=== PATIENT | female | born 1935 | race Caucasian/White ===

== ENCOUNTER 2022-04-02 08:00 | Outpatient (CLI) | payer MEDICARE, OTHER ==
--- NOTE | 2022-04-03 08:42 | XRAY Report ---
PROCEDURE: Chest 2 View X-Ray INDICATIONS: HEMOPTYSIS TECHNIQUE: 2 view(s) of the chest. COMPARISON: None. FINDINGS: SUPPORT DEVICES: None. LUNGS/PLEURA: Coarsened interstitial markings. Density in the left lower lung zone, concerning for pn eumonic infiltrate or atelectasis. MEDIASTINUM: Mild enlargement of cardiac silhouette. Calcified atheromatous changes of the aorta. BONES/SOFT TISSUES: No acute abnormality. Bilateral shoulder arthroplasties. IMPRESSION: 1.Density in the left lower lung zone, concerning for pneumonic infiltrate or atelectasis. Reviewed by: Syed West MD on 04/03/2022 8:41 AM PDT Approved by: Syed West MD on 04/03/2022 8:41 AM PDT Station ID: [id number]
== END 2022-04-02 23:59 | disposition home or self-care (01) ==
LOC: DI.N 08:00
PROVIDERS: ATTEND Physician Assistant
DX: R04.2 Hemoptysis (principal); R91.8 Other nonspecific abnormal finding of lung field

== ENCOUNTER 2022-05-11 16:52 | Outpatient (CLI) | payer MEDICARE, OTHER | END 2022-05-11 16:53 | disposition left against medical advice (07) | LOC: EMS 16:52 | DX: R52 Pain, unspecified (principal) ==

== ENCOUNTER 2022-08-02 15:58 | Emergency (ER) | payer MEDICARE, OTHER ==
[2022-08-02 16:13] VITALS: BP 185/53
--- NOTE | 2022-08-02 17:54 | CT Report ---
PROCEDURE: CERVICAL SPINE WO INDICATIONS: fall, head/neck pain x 5 days TECHNIQUE: Noncontrast 3 mm thick sections acquired from the skull base to the T4 level. Sagittal and coronal r eformats were then constructed. For radiation dose reduction, the following was used: automated exp osure control, adjustment of mA and/or kV according to patient size. COMPARISON: None. FINDINGS: Image quality: Excellent. Bones: No fractures or dislocations. Visualized superior ribs are intact. The cervical spine has m ultilevel degenerative changes. There is disc disease at C5-6, C6-7 and C7-T1 Soft tissues: Prevertebral soft tissues are normal in thickness. No paravertebral hematomas. No ap ical pneumothoraces. Right carotid artery stent and left carotid bulb calcifications. IMPRESSION: 1. No acute traumatic abnormality of the cervical spine. 2. 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 Reviewed by: Jamie Gallardo on 08/02/2022 5:53 PM PDT Approved by: Jamie Gallardo on 08/02/2022 5:53 PM PDT Station ID: [id number]
--- NOTE | 2022-08-02 17:56 | CT Report ---
PROCEDURE: HEAD WO INDICATIONS: fall, head/neck pain x 5 days, on eliquis TECHNIQUE: Noncontrast 4.5 mm thick angled axial sections acquired from the foramen magnum to the vertex. For r adiation dose reduction, the following was used: automated exposure control, adjustment of mA and/or kV according to patient size. COMPARISON: None. FINDINGS: Image quality: Significant artifact is seen by the electronic device over the left posterior scalp wh ich limits evaluation of the left hemisphere.. CSF spaces: Basal cisterns are patent. No extra-axial fluid collections. Ventricles are normal in size and shape. Brain: No midline shift. No intracranial masses or hemorrhage. Villeda-white matter interface is norm al. Skull and face: Calvarium and visualized facial bones are intact, without suspicious lesions. Elect ronic device, probably a cochlear implant is seen over the left posterior scalp. Sinuses: Visualized sinuses and mastoids are clear. IMPRESSION: No acute intracranial abnormality. Reviewed by: Jamie Gallardo on 08/02/2022 5:55 PM PDT Approved by: Jamie Gallardo on 08/02/2022 5:55 PM PDT Station ID: [id number]
--- NOTE | 2022-08-02 18:08 | ED Physician Documentation ---
History of Present Illness - Stated complaint Stated Complaint: FELL FRIDAY - Chief complaint Chief Complaint: Trauma Hd/Nk - History obtained from History obtained from: Patient, Family - History of Present Illness Timing: How many days ago (5) Pain level max: 4 Pain level now: 3 - Additonal information Additional information: Patient is an 87-year-old female, currently taking Eliquis who is brought in by family today. About 5 days ago she tripped fell landing on her left hip, left knee and striking the left side of her head. She has a mild continued headache. She has a large bruise to the left hip area and bruising to the left knee. She states she is not having any pain with walking. She walks using a walker. Worse with movement and palpation. Better with rest. No vomiting. No seizure activity. No loss of consciousness. No neck or back pain. Review of Systems Constitutional: denies: Fever, Chills Respiratory: denies: Cough GI: denies: Abdominal Pain, Vomiting, Diarrhea Skin: denies: Rash Neurologic: denies: Focal weakness, Numbness, Altered mental status PD PAST MEDICAL HISTORY - Past Medical History Past Medical History: Yes Cardiovascular: Atrial fibrillation - Allergies Allergies/Adverse Reactions: Allergies Allergy/AdvReac Type Severity Reaction Status Date / Time lisinopril Allergy Respiratory Verified 08/02/22 16:13 PD ED PE NORMAL - Vitals Vital signs reviewed: Yes - General General: Alert and oriented X 3, No acute distress - HEENT HEENT: Atraumatic, PERRL, Ears normal, Moist mucous membranes - Neck Neck: Supple, no meningeal sign - Cardiac Cardiac: RRR - Respiratory Respiratory: No respiratory distress, Clear bilaterally - Abdomen Abdomen: Soft, Non tender, Non distended - Derm Derm: Warm and dry - Extremities Extremities: Other (Large hematoma to the left buttock. No bony tenderness. Full range of motion of left hip without pain. Also has a mild bruising to the left knee. 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, No motor deficit, No sensory deficit, Normal speech Eye Opening: Spontaneous Motor: Obeys Commands Verbal: Oriented GCS Score: 15 - Psych Psych: Normal mood, Normal affect Results - Vitals Vitals: Vital Signs - 24 hr 08/02/22 16:04 Temperature 36.3 C L Heart Rate 65 Respiratory 16 Rate Blood Pressure 185/53 H O2 Saturation 98 Oxygen O2 Source Room air - Rads (name of study) head CT Radiology: Final report received, EMP read contemporaneously, See rad report c-spine CT Radiology: Final report received, EMP read contemporaneously, See rad report PD MEDICAL DECISION MAKING - ED course Complexity details: reviewed results, re-evaluated patient, considered differential, d/w patient, d/w family ED course: Head CT and cervical spine CT do not show any acute abnormalities. No indication for x-ray of the hip or knee on the left side. She does have a large soft tissue hematoma. We will utilize compression for this at home. She is currently on Eliquis, we will continue this. Patient is well-appearing, nontoxic. Ambulating without any difficulty with her walker. No limping. Patient and family counseled regarding signs and symptoms for which I believe and urgent re-evaluation would be necessary. Patient with good understanding of and agreement to plan and is comfortable going home at this time This document was made in part using voice recognition software. While efforts are made to proofread this document, sound alike and grammatical errors may occur. Departure - Departure Disposition: 01 Home, Self Care Clinical Impression: Closed head injury Qualifiers: Encounter type: initial encounter Qualified Code(s): S09.90XA - Unspecified injury of head, initial encounter Hip hematoma, left Qualifiers: Encounter type: initial encounter Qualified Code(s): S70.02XA - Contusion of left hip, initial encounter Condition: Good Instructions: ED Head Injury Closed, ED Hematoma Follow-Up: your,doctor in 1 week [Other] Comments: Please follow-up with your doctor in 1 week for repeat evaluation of your hematoma. Your CT scans do not show any acute abnormalities today. Please return if you worsen. I would continue to use ice and pressure to help decrease the bleeding and your hematoma. There is likely that the bruising will continue down your leg as it heals.
[2022-08-02] MEDS ORDERED: oxyCODONE 5 MG TABLET PO STA (18:21)
== END 2022-08-02 18:32 | disposition home or self-care (01) ==
LOC: ED 15:58
DX: S09.90XA Unspecified injury of head, initial encounter (principal); S70.02XA Contusion of left hip, initial encounter; W19.XXXA Unspecified fall, initial encounter; I48.91 Unspecified atrial fibrillation
CPT/HCPCS: 70450; 72125; 99282; 99284; A9270